=== PATIENT | female | born 2000 | race Hispanic/Latino ===

== ENCOUNTER 2023-02-15 17:06 | Inpatient (IN) | payer SELFPAY ==
[2023-02-15] MEDS ORDERED: Acetaminophen 325 MG TAB ONE (17:42)
[2023-02-15 17:48] LABS: Hematocrit 34.4 % (34.9-44.5); Hemoglobin 11.3 g/dL (12.0-15.5); Mean Corpuscular HGB CONC 32.8 g/dL (32.0-36.0); Mean Corpuscular Hemoglobin 30.3 pg (27.0-33.0); Mean Corpuscular Volume 92.2 fl (81.6-98.3); Mean Platelet Volume 10.8 fl (7.4-10.4); Platelet Count 316 10x3/uL (150-450); RBC Distribution Width 12.8 % (11.5-14.5); Red Blood Cell (RBC) Count 3.73 10x6/uL (3.90-5.03); White Blood Cell (WBC) Count 25.8 10x3/uL (3.5-10.5)
[2023-02-15 17:53] LABS: ALT (SGPT) 45 U/L (8-55); AST (SGOT) 32 U/L (5-34); Alkaline Phosphatase 38 U/L (40-110); Anion Gap 17 mmol/L (10-20); BUN (Urea Nitrogen) 11 mg/dL (7.0-18.7); Bilirubin, Total 0.4 mg/dL (0.2-1.2); Calc. Creatinine Clearance 0 mL/min (70-130); Calcium 8.8 mg/dL (7.8-10.44); Carbon Dioxide 17 mmol/L (22-29); Chloride 105 mmol/L (98-107); Estimated GFR 99; Globulin 2.7 g/dL (2.4-3.5); Glucose 183 mg/dL (70-105); Potassium 4.3 mmol/L (3.5-5.1); Protein, Total 6.7 g/dL (6.0-8.3); Sodium 135 mmol/L (136-145)
[2023-02-15 17:59] LABS: Troponin I Less than 0.010 ng/mL (< 0.028)
[2023-02-15 18:18] LABS: BHCG - Serum POSITIVE (NEGATIVE); Pregs Control Background? CLEAR/WHITE (CLR/WHITE); Pregs Control Bar Appear? YES (CONTROL BAR)
[2023-02-15 18:23] LABS: Band 16 % (5-11); Lymphocytes 5 % (21-51); Monocytes 2 % (0-10); Neutrophil 77 % (42-75)
[2023-02-15 18:24] LABS: MDiff Complete? YES; Platelet Adequacy Comment Appears Adequate; Platelet Clumps SLIGHT; RBC Morph Comment Within Normal Limits
[2023-02-15] MEDS ORDERED: Piperacillin/Tazobactam 3.375 GM VIAL ONE (19:26)
[2023-02-15] MEDS ORDERED: Piperacillin/Tazobactam 3.375 GM in Sodium Chloride 0.9% 100 ML IVPB SCH ×2 (19:45→23:59)
[2023-02-15 20:14] LABS: SARS-CoV-2 NAA Rapid Test Not Detected (NotDetected)
[2023-02-15] MEDS ORDERED: Bupivacaine PF 0.5% 30 ML VIAL ONE (20:42)
[2023-02-15] MEDS ORDERED: EPINEPHrine 1 MG/ML VIAL ONE (20:42)
[2023-02-15 20:44] LABS: Lactic Acid 3.6 mmol/L (0.5-2.2)
[2023-02-15] MEDS ORDERED: Midazolam HCl 2 mg/2 ml Vial ONE (20:44)
[2023-02-15] MEDS ORDERED: Ondansetron PF 4 MG/2 ML Vial ONE (20:44)
[2023-02-15] MEDS ORDERED: Lidocaine 1% PF 5 ML VIAL ONE (20:44)
[2023-02-15] MEDS ORDERED: PROPOFOL 20 ML ONE (20:44)
[2023-02-15] MEDS ORDERED: Dexamethasone 20 MG/5 ML VIAL ONE (20:44)
[2023-02-15] MEDS ORDERED: fentaNYL 50 mcg/mL 1 mL Vial ONE (20:44)
[2023-02-15] MEDS ORDERED: Succinylcholine 200 MG/10 ml SYRINGE FS ONE (20:45)
[2023-02-15] MEDS ORDERED: Rocuronium Bromide 10 MG/ML (10ML VIAL) ONE (20:45)
[2023-02-15] MEDS ORDERED: Ketorolac Tromethamine 30 MG/ML VIAL ONE (20:45)
[2023-02-15] MEDS ORDERED: Calcium Chloride 1 GM/10 ML Abboject SYRINGE ONE (21:43)
[2023-02-15] MEDS ORDERED: Sodium Bicarb 50 MEQ/50 ML Abboject 8.4% SYRINGE ONE (21:43)
[2023-02-15] MEDS ORDERED: SUGAMMADEX SODIUM 200 MG/2 ML VIAL ONE (21:54)
[2023-02-15] MEDS ORDERED: HYDROcodone/Acetaminophen 5/325 mg Tablet PO PRN ×2 (22:08→22:19)
[2023-02-15] MEDS ORDERED: Ondansetron PF 4 MG/2 ML Vial IVP PRN (22:11)
[2023-02-15 23:15] LABS: Hematocrit 33.2 % (34.9-44.5); Hemoglobin 11.1 g/dL (12.0-15.5)
[2023-02-16] MEDS: Morphine 2 MG/ML VIAL SLOW IVP PRN ×2 (01:28→10:34)
[2023-02-16] MEDS: Lactated Ringer's 1,000 ML IV SCH ×2 (01:32→21:27)
[2023-02-16] MEDS: Piperacillin/Tazobactam 3.375 GM in Sodium Chloride 0.9% 100 ML IVPB SCH ×3 (01:45→17:39)
[2023-02-16 02:07] VITALS: BMI 26.5
[2023-02-16] MEDS ORDERED: FLU VACC QS2023-24(6MOS UP)/PF 60 MCG/0.5 ML SYRINGE IM ONE (02:45)
[2023-02-16] MEDS: Simethicone Chewable 80 MG TAB PO PRN ×3 (03:51→21:27)
[2023-02-16 04:02] LABS: #Monocytes 0.2 10x3/uL (0.0-1.1); #Neutrophils 14.7 10x3/uL (1.5-8.4); %Basophils 0.1 % (0.0-2.0); %Lymphocytes 6.1 % (18.0-47.0); %Monocytes 1.4 % (0.0-10.0); %Neutrophils 91.8 % (40.0-75.0); Hematocrit 28.6 % (34.9-44.5); Hemoglobin 10.2 g/dL (12.0-15.5); Mean Corpuscular HGB CONC 35.7 g/dL (32.0-36.0); Mean Corpuscular Hemoglobin 31.2 pg (27.0-33.0); Mean Corpuscular Volume 87.5 fl (81.6-98.3); Mean Platelet Volume 10.9 fl (7.4-10.4); Platelet Count 195 10x3/uL (150-450); Red Blood Cell (RBC) Count 3.27 10x6/uL (3.90-5.03)
[2023-02-16 04:16] LABS: ALT (SGPT) 31 U/L (8-55); AST (SGOT) 20 U/L (5-34); Albumin 3.1 g/dL (3.5-5.0); Alkaline Phosphatase 28 U/L (40-110); Anion Gap 12 mmol/L (10-20); BUN (Urea Nitrogen) 7 mg/dL (7.0-18.7); Bilirubin, Total 0.8 mg/dL (0.2-1.2); Calc. Creatinine Clearance 161 mL/min (70-130); Calcium 8.3 mg/dL (7.8-10.44); Carbon Dioxide 17 mmol/L (22-29); Chloride 111 mmol/L (98-107); Estimated GFR 132; Globulin 2.3 g/dL (2.4-3.5); Glucose 127 mg/dL (70-105); Potassium 4.2 mmol/L (3.5-5.1); Protein, Total 5.4 g/dL (6.0-8.3); Sodium 136 mmol/L (136-145)
[2023-02-16] MEDS ORDERED: Ibuprofen 800 MG TAB PO SCH (10:45)
[2023-02-16] MEDS: Ibuprofen 800 MG TAB PO SCH (21:27)
[2023-02-17] MEDS: Piperacillin/Tazobactam 3.375 GM in Sodium Chloride 0.9% 100 ML IVPB SCH (01:45)
[2023-02-17] MEDS: Lactated Ringer's 1,000 ML IV SCH (05:10)
[2023-02-17] MEDS: Ibuprofen 800 MG TAB PO SCH (05:17)
[2023-02-17 07:47] VITALS: BP 109/63; TEMP 98.1
== END 2023-02-17 09:30 | disposition home or self-care (01) | DRG 817 ==
LOC: CSHERS 17:06 → CSHSDC/OP 20:58 → CSHPP 02-16 01:19
PROVIDERS: ADMIT Obstetrics & Gynecology; ATTEND Obstetrics & Gynecology
PROC: 10T24ZZ Resection of Products of Conception, Ectopic, Percutaneous Endoscopic Approach (ICD-10-PCS; principal; 2023-02-15)
PROC: 0UB54ZZ Excision of Right Fallopian Tube, Percutaneous Endoscopic Approach (ICD-10-PCS; 2023-02-15)
PROC: 0W9G4ZZ Drainage of Peritoneal Cavity, Percutaneous Endoscopic Approach (ICD-10-PCS; 2023-02-15)
PROC: 30233N1 Transfusion of Nonautologous Red Blood Cells into Peripheral Vein, Percutaneous Approach (ICD-10-PCS; 2023-02-15)
DX: O00.101 Right tubal pregnancy without intrauterine pregnancy (principal); K66.1 Hemoperitoneum; O08.82 Sepsis following ectopic and molar pregnancy; E87.20 Acidosis, unspecified; O08.1 Delayed or excessive hemorrhage following ectopic and molar pregnancy; Z11.52 Encounter for screening for COVID-19
CPT/HCPCS: 36415; 36416; 36430; 71045; 76856; 80053; 83605; 83690; 84484; 84702; 84703; 85025; 86850; 86900; 86901; 87040; 88305; 93005; 93010; 96361; 96365; J0171; J1100; J1885; J2250; J2272; J2405; J2543; J2704; J3010; J3490; J7120; P9016; P9040; S0020